=== PATIENT | male | born 1950 | race African-American/Black ===

== ENCOUNTER 2016-04-11 16:47 | Emergency (ER) | payer MEDICARE ==
[~2016-04-11] VITALS: Ht 190.5 cm; Wt 122.5 kg
[~2016-04-11 16:47] MED LIST: CIPR500T94 PO; LOSA25TA4 PO; METR250T PO; OMEP40CA5 PO
[2016-04-11] MEDS ORDERED: IV NORMAL SALINE 1000ML BAG 1,000 ML IV ONE (17:30)
[2016-04-11] MEDS ORDERED: ONDANSETRON PF 4 MG/2 ML VIAL. IV ONE (17:30)
[2016-04-11 17:47] LABS: BASO # 0.1 x10^3/uL (0.0-0.2); BASO % 1 % (0-3); EOS % 2 % (0-3); HEMOGLOBIN 12.1 g/dL (13.0-17.5); LYMPH # 2.1 x10^3/uL (1.0-4.8); LYMPH % 24 % (24-48); MEAN CORPUSCULAR HEMOGLOBIN 28 pg (25-35); MEAN CORPUSCULAR HGB CONC 34 g/dL (31-37); MEAN CORPUSCULAR VOLUME 84 fL (79-100); MONO % 15 % (0-9); NEUT % 59 % (31-73); PLATELET COUNT 330 x10^3/uL (140-400); RED CELL DISTRIBUTION WIDTH 14.9 % (11.5-14.5); WHITE BLOOD COUNT 8.8 x10^3/uL (4.0-11.0)
[2016-04-11 17:59] LABS: CALCIUM 8.8 mg/dL (8.5-10.1); CREATININE 1.1 mg/dL (0.7-1.3); GFR 80.8; POTASSIUM 4.3 mmol/L (3.5-5.1)
--- NOTE | 2016-04-11 18:03 | RAD ---
PROCEDURE CT abdomen pelvis without contrast. HISTORY Left upper quadrant abdominal pain times past week. Nausea, vomiting, diarrhea. TECHNIQUE Helical CT imaging of the abdomen pelvis is performed without IV or oral contrast. PQRS: One or more the following individualized dose reduction techniques were utilized for the study: 1. Automated exposure control. 2. Adjustment of the mA and/or kV according to patient size. 3. Use of iterative reconstruction technique. COMPARISON None. FINDINGS There is bilateral lower lobe subsegmental atelectasis. Cardiac size normal. Evaluation of solid organs and bowel is limited without oral and IV contrast, decreasing sensitivity for detection of pathology. The liver, spleen, gallbladder, pancreas, adrenal glands, and abdominal aortic caliber normal. There are bilateral renal cysts. There appear to be 3 on the left. There is no hydronephrosis. No renal calculus. No obvious abnormality of the stomach. No dilated small bowel. Scattered colon diverticula. The appendix is normal. There is mild wall thickening and surrounding inflammation of the transverse and descending colon there are diverticula in this region but the overall finding is more diffuse. There are multiple subcentimeter mesenteric lymph nodes, mild haziness of the mesentery, a nonspecific finding. There is no intraperitoneal free air. Urinary bladder is normal. Prostate size normal. No pelvic free fluid. No acute bone abnormality IMPRESSION 1. Mild wall thickening and surrounding inflammation of the transverse and descending colon. There are scattered colon diverticula in this region but nonspecific colitis is favored over diverticulitis. 2. Bilateral renal cysts. Electronically signed by: Volodymyr Jin MD (Apr 11, 2016 18:01:35)
[2016-04-11 18:06] LABS: ALBUMIN 3.3 g/dL (3.4-5.0); ALBUMIN/GLOBULIN RATIO 0.7 (1.0-1.7); TOTAL BILIRUBIN 0.3 mg/dL (0.2-1.0); TOTAL PROTEIN 7.9 g/dL (6.4-8.2)
[2016-04-11 18:07] LABS: BILIRUBIN,URINE NEGATIVE (NEG); GLUCOSE,URINE NEGATIVE (NEG); NITRITE,URINE NEGATIVE (NEG); PROTEIN,URINE NEGATIVE (NEG-TRACE); UROBILINOGEN,URINE 0.2 mg/dL (0.2 mg/dL)
[2016-04-11 18:13] LABS: BACTERIA,URINE 0 /HPF (0-FEW); RBC,URINE OCC /HPF (0-2); SQUAMOUS EPITHELIAL CELL,UR OCC /LPF; WBC,URINE 0 /HPF (0-4)
[2016-04-11] MEDS ORDERED: methylPREDNISolone SOD SUCC PF 125 MG/2 ML VIAL. IV ONE (18:45)
[2016-04-11] MEDS ORDERED: ONDA4TAB7 PO (18:57)
[2016-04-11] MEDS ORDERED: METH4TAB2 PO (18:57)
[2016-04-11] MEDS ORDERED: LEVO500T38 PO (18:57)
--- NOTE | 2016-04-11 18:57 | PHYS DOC ---
Past Medical History Past Medical History: Hypertension, Other Additional Past Medical Histor: chrohns, colitis Past Surgical History: Knee Replacement, Other Additional Past Surgical Histo: r foot -cut ganggreen, abdominal pain Alcohol Use: Heavy Drug Use: None Adult General Chief Complaint Chief Complaint: ABDOMINAL PAIN [facility] HPI 65-year-old male with a history of Crohn's disease presents with a 2-3 day history of nausea and vomiting and abdominal cramping. He states this feels like a Crohn's flare. She has not been on steroids in quite some time. He does see a bath tester named Dr. Ashley Jones. He denies any melena or hematemesis. He has not noticed any bright red blood per rectum. His biggest concern today is nausea and vomiting and unable to keep much down.] Review of Systems Review of Systems Constitutional: Denies fever or chills [] Eyes: Denies change in visual acuity, redness, or eye pain [] HENT: Denies nasal congestion or sore throat [] Respiratory: Denies cough or shortness of breath [] Cardiovascular: No additional information not addressed in HPI [] GI: Per history of present illness [] : Denies dysuria or hematuria [] Musculoskeletal: Denies back pain or joint pain [] Integument: Denies rash or skin lesions [] Neurologic: Denies headache, focal weakness or sensory changes [] Endocrine: Denies polyuria or polydipsia [] Current Medications Current Medications Current Medications Medications (Trade) Dose Ordered Sig/Michi Start Time Stop Time Status Last Admin Dose Admin Methylprednisolone Sodium Succinate (Solu-Medrol 125mg Vial) 125 mg 1X ONCE 04/11/16 18:45 04/11/16 18:46 DC 04/11/16 18:49 125 MG Ondansetron HCl (Zofran) 4 mg 1X ONCE 04/11/16 17:30 04/11/16 17:31 DC 04/11/16 17:52 4 MG Sodium Chloride (Iv Sodium Chloride 0.9% 1000ml Bag) 1,000 ml @ 1,000 mls/hr 1X ONCE 04/11/16 17:30 04/11/16 18:29 DC 04/11/16 17:52 1,000 MLS/HR Allergies Allergies Allergies Coded Allergies Type Severity Reaction Last Updated Verified No Known Drug Allergies 12/19/13 No Physical Exam Physical Exam Constitutional: Well developed, well nourished, no acute distress, non-toxic appearance. [] HENT: Normocephalic, atraumatic, bilateral external ears normal, oropharynx moist, no oral exudates, nose normal. [] Eyes: PERRLA, EOMI, conjunctiva normal, no discharge. [] Neck: Normal range of motion, no tenderness, supple, no stridor. [] Cardiovascular:Heart rate regular rhythm, no murmur [] Lungs & Thorax: Bilateral breath sounds clear to auscultation [] Abdomen: Bowel sounds normal, soft, no tenderness, no masses, no pulsatile masses. [] Skin: Warm, dry, no erythema, no rash. [] Back: No tenderness, no CVA tenderness. [] Extremities: No tenderness, no cyanosis, no clubbing, ROM intact, no edema. [] Neurologic: Alert and oriented X 3, normal motor function, normal sensory function, no focal deficits noted. [] Psychologic: Affect normal, judgement normal, mood normal. [] Current Patient Data Vital Signs Vital Signs Date Time Temp Pulse Resp B/P Pulse Ox O2 Delivery O2 Flow Rate FiO2 04/11/16 16:52 98.3 77 18 177/83 99 Room Air 98.3 Lab Values Laboratory Tests Test 04/11/16 17:37 04/11/16 17:53 White Blood Count 8.8x10^3/uL (4.0-11.0) Red Blood Count 4.30x10^6/uL (4.30-5.70) Hemoglobin 12.1g/dL (13.0-17.5) L Hematocrit 36.0% (39.0-53.0) L Mean Corpuscular Volume 84fL (79-100) Mean Corpuscular Hemoglobin 28pg (25-35) Mean Corpuscular Hemoglobin Concent 34g/dL (31-37) Red Cell Distribution Width 14.9% (11.5-14.5) H Platelet Count 330x10^3/uL (140-400) Neutrophils (%) (Auto) 59% (31-73) Lymphocytes (%) (Auto) 24% (24-48) Monocytes (%) (Auto) 15% (0-9) H Eosinophils (%) (Auto) 2% (0-3) Basophils (%) (Auto) 1% (0-3) Neutrophils # (Auto) 5.2x10^3uL (1.8-7.7) Lymphocytes # (Auto) 2.1x10^3/uL (1.0-4.8) Monocytes # (Auto) 1.3x10^3/uL (0.0-1.1) H Eosinophils # (Auto) 0.2x10^3/uL (0.0-0.7) Basophils # (Auto) 0.1x10^3/uL (0.0-0.2) Sodium Level 137mmol/L (136-145) Potassium Level 4.3mmol/L (3.5-5.1) Chloride Level 102mmol/L (98-107) Carbon Dioxide Level 28mmol/L (21-32) Anion Gap 7 (6-14) Blood Urea Nitrogen 13mg/dL (8-26) Creatinine 1.1mg/dL (0.7-1.3) Estimated GFR (Cockcroft-Gault) 80.8 BUN/Creatinine Ratio 12 (6-20) Glucose Level 101mg/dL (70-99) H Calcium Level 8.8mg/dL (8.5-10.1) Total Bilirubin 0.3mg/dL (0.2-1.0) Aspartate Amino Transferase (AST) 34U/L (15-37) Alanine Aminotransferase (ALT) 44U/L (16-63) Alkaline Phosphatase 102U/L (46-116) Troponin I Quantitative < 0.017ng/mL (0.000-0.055) Total Protein 7.9g/dL (6.4-8.2) Albumin 3.3g/dL (3.4-5.0) L Albumin/Globulin Ratio 0.7 (1.0-1.7) L Lipase 118U/L (73-393) Urine Collection Type Unknown Urine Color Yellow Urine Clarity Clear Urine pH 6.0 Urine Specific [place] 1.010 Urine Protein Negativemg/dL (NEG-TRACE) Urine Glucose (UA) Negativemg/dL (NEG) Urine Ketones (Stick) Negativemg/dL (NEG) Urine Blood Trace (NEG) Urine Nitrite Negative (NEG) Urine Bilirubin Negative (NEG) Urine Urobilinogen Dipstick 0.2mg/dL (0.2 mg/dL) Urine Leukocyte Esterase Negative (NEG) Urine RBC Occ/HPF (0-2) Urine WBC 0/HPF (0-4) Urine Squamous Epithelial Cells Occ/LPF Urine Bacteria 0/HPF (0-FEW) Urine Mucus Slight/LPF Laboratory Tests 04/11/16 17:37 Laboratory Tests 04/11/16 17:37 EKG EKG [] Radiology/Procedures Radiology/Procedures [] Impressions: PROCEDURE: ABDOMEN PELVIS WO CONTRAST PROCEDURE CT abdomen pelvis without contrast. HISTORY Left upper quadrant abdominal pain times past week. Nausea, vomiting, diarrhea. TECHNIQUE Helical CT imaging of the abdomen pelvis is performed without IV or oral contrast. PQRS: One or more the following individualized dose reduction techniques were utilized for the study: 1. Automated exposure control. 2. Adjustment of the mA and/or kV according to patient size. 3. Use of iterative reconstruction technique. COMPARISON None. FINDINGS There is bilateral lower lobe subsegmental atelectasis. Cardiac size normal. Evaluation of solid organs and bowel is limited without oral and IV contrast, decreasing sensitivity for detection of pathology. The liver, spleen, gallbladder, pancreas, adrenal glands, and abdominal aortic caliber normal. There are bilateral renal cysts. There appear to be 3 on the left. There is no hydronephrosis. No renal calculus. No obvious abnormality of the stomach. No dilated small bowel. Scattered colon diverticula. The appendix is normal. There is mild wall thickening and surrounding inflammation of the transverse and descending colon there are diverticula in this region but the overall finding is more diffuse. There are multiple subcentimeter mesenteric lymph nodes, mild haziness of the mesentery, a nonspecific finding. There is no intraperitoneal free air. Urinary bladder is normal. Prostate size normal. No pelvic free fluid. No acute bone abnormality IMPRESSION 1. Mild wall thickening and surrounding inflammation of the transverse and descending colon. There are scattered colon diverticula in this region but nonspecific colitis is favored over diverticulitis. 2. Bilateral renal cysts. Course & Med Decision Making Course & Med Decision Making Pertinent Labs and Imaging studies reviewed. (See chart for details) [ED course: Evaluation reveals 65-year-old male with definite colitis on the CT scan. He was given IV steroids during his stay in the department. He is also given IV fluids and Zofran which he states made him feel quite a bit better. I do believe he's got a Crohn's flare and will be treated with steroids and antibiotics as an outpatient. I've encouraged him to follow up with Dr. Jones this week for recheck.] [place] Disclaimer Dragon Disclaimer This electronic medical record was generated, in whole or in part, using a voice recognition dictation system. Departure Departure Impression: Primary Impression: Exacerbation of Crohn's disease Disposition: HOME, SELF-CARE Condition: IMPROVED Referrals: ANSON AUGUSTINE MD (PCP) Patient Instructions: Colitis Additional Instructions: Thank you for allowing us to participate in your care today. Followup with your primary care physician in 3 days if your symptoms do not improve. Return to the emergency department you have any new or concerning findings. This should be evaluated by the primary care physician and any necessary consulting services for continued management within a few days after discharge. Return to emergency room if you have any new or concerning symptoms including but not limited to fever, chills, nausea, vomiting, intractable pain, any new rashes, chest pain, shortness of air, uncontrolled bleeding, difficulty breathing, and/or vision loss. You may have been prescribed medication that can change in your level of thinking and ability to operate machinery. These medications include hydrocodone and Ativan. Also, Benadryl has been known to do this as well. Be sure to check with your pharmacist and ask if the medications you've prescribed can affect your level of consciousness. I recommend not operating heavy machinery or driving while on medication such as these. Scripts Ondansetron Hcl (Zofran)4 Mg Tablet1 Tab PO Q8HRS PRN NAUSEA #20 TAB Prov:VALERIA ALATORRE DO 04/11/16 Levofloxacin (Levaquin)500 Mg Tablet1 Tab PO DAILY Crohn's #10 TAB Prov:VALERIA ALATORRE DO 04/11/16 Methylprednisolone (Medrol)4 Mg Tab.ds.pk1 Pkg PO UD Crohn's disease #1 PKG Prov:VALERIA ALATORRE DO 04/11/16 Problem Qualifiers Primary Impression: Exacerbation of Crohn's disease Digestive disease complication type: without complication Qualified Code: K50.90 - Crohn's disease, unspecified, without complications VALERIA ALATORRE DO Apr 11, 2016 18:57
[2016-04-11 19:03] VITALS: BP 165/99
--- NOTE | 2016-04-12 06:21 | EKG ---
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
== END 2016-04-11 19:18 | disposition home or self-care (01) ==
LOC: ER 16:47
DX: K50.90 Crohn's disease, unspecified, without complications (principal); I10 Essential (primary) hypertension; F10.10 Alcohol abuse, uncomplicated
CPT/HCPCS: 36415; 74176; 80053; 81001; 83690; 84484; 85027; 93005; 96361; 96374; 96375; 99285; J2405; J2930; J7030

== ENCOUNTER 2016-04-17 13:06 | Emergency (ER) | payer MEDICARE ==
[~2016-04-17] VITALS: Ht 190.5 cm; Wt 115.7 kg
[~2016-04-17 13:06] MED LIST changes: +LEVO500T38 PO; +METH4TAB2 PO; +ONDA4TAB7 PO
[2016-04-17] MEDS ORDERED: FENTANYL PF 100 MCG/2 ML VIAL. IV ONE (14:30)
[2016-04-17 14:43] LABS: BASO # 0.1 x10^3/uL (0.0-0.2); BASO % 0 % (0-3); EOS % 0 % (0-3); HEMATOCRIT 41.1 % (39.0-53.0); HEMOGLOBIN 13.6 g/dL (13.0-17.5); LYMPH # 2.4 x10^3/uL (1.0-4.8); LYMPH % 14 % (24-48); MEAN CORPUSCULAR HEMOGLOBIN 28 pg (25-35); MEAN CORPUSCULAR HGB CONC 33 g/dL (31-37); MEAN CORPUSCULAR VOLUME 83 fL (79-100); MONO % 11 % (0-9); NEUT % 75 % (31-73); PLATELET COUNT 417 x10^3/uL (140-400); RED BLOOD COUNT 4.95 x10^6/uL (4.30-5.70); RED CELL DISTRIBUTION WIDTH 14.7 % (11.5-14.5); WHITE BLOOD COUNT 17.4 x10^3/uL (4.0-11.0)
[2016-04-17 14:53] LABS: CALCIUM 9.1 mg/dL (8.5-10.1); CREATININE 1.2 mg/dL (0.7-1.3); GFR 73.1; POTASSIUM 4.1 mmol/L (3.5-5.1)
--- NOTE | 2016-04-17 16:24 | PHYS DOC ---
Past Medical History Past Medical History: Hypertension, Other Additional Past Medical Histor: chrohns, colitis Past Surgical History: Knee Replacement, Other Additional Past Surgical Histo: r foot gangreen, abdominal pain Alcohol Use: Heavy Drug Use: None Adult General Chief Complaint Chief Complaint: ABDOMINAL PAIN [facility] HPI Patient is a 65 year old male with Crohn's disease who presents with ongoing lower abdominal pain as well as loose stools. States he has had one blood tinged stool upon arrival here. States he took levofloxacin and steroids as directed from prior emergency department visit approximately one week ago. [facility] he followed up with his primary care doctor, who gave him more narcotics for his symptoms and referred him to a GI clinic. He currently does not have a GI clinic appointment. He denies fever or chills, nausea or vomiting. His narcotic pain medicine last approximately 6 hours, but he is only prescribed hydrocodone/acetaminophen every 12 hours. Review of Systems Review of Systems Constitutional: Denies fever or chills [] Eyes: Denies change in visual acuity, redness, or eye pain [] HENT: Denies nasal congestion or sore throat [] Respiratory: Denies cough or shortness of breath [] Cardiovascular: No additional information not addressed in HPI [] GI: Denies nausea, vomiting [] : Denies dysuria or hematuria [] Musculoskeletal: Denies back pain or joint pain [] Integument: Denies rash or skin lesions [] Neurologic: Denies headache, focal weakness or sensory changes [] Endocrine: Denies polyuria or polydipsia [] Current Medications Current Medications Current Medications Medications (Trade) Dose Ordered Sig/[facility] Start Time Stop Time Status Last Admin Dose Admin Fentanyl Citrate (Fentanyl 2ml Vial) 75 mcg 1X ONCE 04/17/16 14:30 04/17/16 14:35 DC 04/17/16 15:01 75 MCG Allergies Allergies Allergies Coded Allergies Type Severity Reaction Last Updated Verified No Known Drug Allergies 12/19/13 No Physical Exam Physical Exam Constitutional: Well developed, well nourished, no acute distress, non-toxic appearance. [] HENT: Normocephalic, atraumatic, bilateral external ears normal, oropharynx moist, nose normal. [] Eyes: PERRLA, EOMI. [] Neck: Normal range of motion, supple. [] Cardiovascular:Heart rate regular rhythm [] Lungs & Thorax: Bilateral breath sounds clear to auscultation [] Abdomen: Bowel sounds normal, soft, mild left lower quadrant tenderness, no guarding or rebound. [] Skin: Warm, dry, no erythema, no rash. [] Back: No tenderness, no CVA tenderness. [] Extremities: No tenderness, ROM intact, no edema. [] Neurologic: Alert and oriented X 3, normal motor function, normal sensory function, no focal deficits noted. [] Psychologic: Affect normal, judgement normal, mood normal. [] Current Patient Data Vital Signs Vital Signs Date Time Temp Pulse Resp B/P Pulse Ox O2 Delivery O2 Flow Rate FiO2 04/17/16 17:00 78 16 150/78 97 Room Air 04/17/16 13:40 97.6 97.6 Lab Values Laboratory Tests Test 04/17/16 13:40 White Blood Count 17.4x10^3/uL (4.0-11.0) #H Red Blood Count 4.95x10^6/uL (4.30-5.70) Hemoglobin 13.6g/dL (13.0-17.5) Hematocrit 41.1% (39.0-53.0) Mean Corpuscular Volume 83fL (79-100) Mean Corpuscular Hemoglobin 28pg (25-35) Mean Corpuscular Hemoglobin Concent 33g/dL (31-37) Red Cell Distribution Width 14.7% (11.5-14.5) H Platelet Count 417x10^3/uL (140-400) H Neutrophils (%) (Auto) 75% (31-73) H Lymphocytes (%) (Auto) 14% (24-48) L Monocytes (%) (Auto) 11% (0-9) H Eosinophils (%) (Auto) 0% (0-3) Basophils (%) (Auto) 0% (0-3) Neutrophils # (Auto) 13.0x10^3uL (1.8-7.7) H Lymphocytes # (Auto) 2.4x10^3/uL (1.0-4.8) Monocytes # (Auto) 1.8x10^3/uL (0.0-1.1) H Eosinophils # (Auto) 0.1x10^3/uL (0.0-0.7) Basophils # (Auto) 0.1x10^3/uL (0.0-0.2) Sodium Level 132mmol/L (136-145) L Potassium Level 4.1mmol/L (3.5-5.1) Chloride Level 97mmol/L (98-107) L Carbon Dioxide Level 26mmol/L (21-32) Anion Gap 9 (6-14) Blood Urea Nitrogen 18mg/dL (8-26) Creatinine 1.2mg/dL (0.7-1.3) Estimated GFR (Cockcroft-Gault) 73.1 Glucose Level 114mg/dL (70-99) H Calcium Level 9.1mg/dL (8.5-10.1) Laboratory Tests 04/17/16 13:40 Laboratory Tests 04/17/16 13:40 Course & Med Decision Making Course & Med Decision Making Pertinent Labs and Imaging studies reviewed. (See chart for details) He has leukocytosis and labs are otherwise unremarkable. He has no further episodes of diarrhea. Symptoms are controlled and he would like to go home. Will provide contact info for GI clinic here for [facility]. Return precautions given. He understands and agrees with plan. Dragon Disclaimer Dragon Disclaimer This electronic medical record was generated, in whole or in part, using a voice recognition dictation system. Departure Departure Impression: Primary Impression: Exacerbation of Crohn's disease Disposition: 01 HOME, SELF-CARE Condition: STABLE Referrals: ANSON AUGUSTINE MD (PCP) Patient Instructions: Crohn's Disease Additional Instructions: Follow-up with your primary care doctor and GI clinic. Please call [phone] for GI clinic appointment. Return for any concerns. Problem Qualifiers Primary Impression: Exacerbation of Crohn's disease Digestive disease complication type: with rectal bleeding Qualified Code: K50.911 - Crohn's disease, unspecified, with rectal bleeding Bud TRAN MD Apr 17, 2016 16:24
[2016-04-17 17:00] VITALS: BP 150/78
== END 2016-04-17 17:00 | disposition home or self-care (01) ==
LOC: ER 13:06
DX: K50.90 Crohn's disease, unspecified, without complications (principal); I10 Essential (primary) hypertension; F10.10 Alcohol abuse, uncomplicated
CPT/HCPCS: 36415; 80048; 85027; 96374; 99284; J3010